=== PATIENT | male | born 1995 | race Caucasian/White ===

== ENCOUNTER 2019-08-12 10:36 | Emergency (ER) | payer SELFPAY ==
--- NOTE | 2019-08-12 11:16 | ED ---
Throat Pain/Nasal Congestion - HPI Summary HPI Summary: This patient is an otherwise healthy 24-year-old male presenting to the ED with left upper molar pain over tooth #17. Patient states his been present times approximately one year, has remained intermittent, not worse or better with eating. He states over the past day, symptoms have become worse and currently rating the pain a 8/10. He states he has never taken antibiotics or pain medications for this. He was able to call [facility] and secure an appointment for Thursday morning, 3 days from today. He denies any fevers, sweats , chills or decreased by mouth intake. Patient is a smoker, drinks alcohol and smokes marijuana. - History of Current Complaint Chief Complaint: EDDentalPain Time Seen by Provider: 08/12/19 10:59 Hx Obtained From: Patient Onset/Duration: Sudden Onset Severity: Moderate Associated Signs And Symptoms: Positive: Negative - Epiglottits Risk Factors Epiglottis Risk Factors: Negative - Allergies/Home Medications Allergies/Adverse Reactions: Allergies Allergy/AdvReac Type Severity Reaction Status Date / Time No Known Allergies Allergy Verified 08/12/19 10:40 PMH/Surg Hx/FS Hx/Imm Hx Previously Healthy: Yes - Immunization History Hx Pertussis Vaccination: No Immunizations Up to Date: Yes Infectious Disease History: No Infectious Disease History: Denies: Traveled Outside the [place] in Last 30 Days - Social History Occupation: Employed Full-time Lives: Alone Alcohol Use: Daily Alcohol Amount: beer and rum Hx Substance Use: Yes Substance Use Type: Reports: Marijuana Hx Tobacco Use: Yes Smoking Status (MU): Heavy Every Day Tobacco Smoker Review of Systems Negative: Fever, Chills, Fatigue, Skin Diaphoresis Positive: Dental Pain Negative: Palpitations, Chest Pain Negative: Shortness Of Breath, Cough Genitourinary: Negative Positive: no symptoms reported, see HPI Musculoskeletal: Negative Neurological: Negative All Other Systems Reviewed And Are Negative: Yes Physical Exam Triage Information Reviewed: Yes Vital Signs On Initial Exam: Initial Vitals Temp Pulse Resp BP Pulse Ox 98.5 F 66 15 135/97 100 08/12/19 10:39 08/12/19 10:39 08/12/19 10:39 08/12/19 10:39 08/12/19 10:39 Vital Signs Reviewed: Yes Appearance: Positive: Well-Appearing, Well-Nourished Skin: Positive: Warm, Skin Color Reflects Adequate Perfusion Head/Face: Positive: Normal Head/Face Inspection Eyes: Positive: EOMI, MADDIE, Conjunctiva Clear Dental: Positive: Other - dental pain - tooth #17 Neck: Positive: Supple, No Lymphadenopathy Respiratory/Lung Sounds: Positive: Clear to Auscultation, Breath Sounds Present Cardiovascular: Positive: RRR Musculoskeletal: Positive: Strength/ROM Intact Neurological: Positive: Speech Normal Psychiatric: Positive: Affect/Mood Appropriate AVPU Assessment: Alert Procedures - Sedation Patient Received Moderate/Deep Sedation with Procedure: No Diagnostics - Vital Signs Vital Signs Temp Pulse Resp BP Pulse Ox 08/12/19 10:39 98.5 F 66 15 135/97 100 - Laboratory Lab Statement: Any lab studies that have been ordered have been reviewed, and results considered in the medical decision making process. EENT Course/Dx - Course Course Of Treatment: Patient is evaluated for left upper molar dental pain. He is having pain over tooth #17. On physical examination, there is no erythema surrounding the tooth. The tooth does have a crack involved. No obvious abscess or swelling. No pharyngeal erythema or tonsillar exudates. Patient is given penicillin 3 times daily 5 days, ibuprofen as well as 2 days' worth of tramadol. He will follow up with [facility] as scheduled on Thursday. - Differential Diagnoses Differential Diagnoses: Other - dental infection - Diagnoses Provider Diagnoses: Toothache Discharge ED - Sign-Out/Discharge Documenting (check all that apply): Patient Departure - Discharge Plan Condition: Stable Disposition: HOME Prescriptions: Ibuprofen 600 mg PO TID PRN #30 tablet MDD 3 PRN Reason: Pain Penicillin VK 500 MG TAB(NF) [Penicillin VK 500 mg Tab(NF)] 500 mg PO TID #15 tab MDD 3 traMADol TAB* [Ultram*] 50 mg PO Q8H PRN #6 tab MDD 3 PRN Reason: Pain Patient Education Materials: Toothache (ED) Forms: *Work Release Referrals: No Primary Care Phys,NOPCP [Primary Care Provider] - Additional Instructions: Please follow-up with dentist as soon as possible Ibuprofen 600 mg 3 times daily for pain For pain not well controlled with ibuprofen, you may use tramadol up to 3 times daily as needed Penicillin 3 times daily 5 days - Billing Disposition and Condition Condition: STABLE Disposition: Home - Attestation Statements Provider Attestation: I was available for consultation for this patient. I did not evaluate the patient or participate in any medical decision making or disposition decisions unless I am specifically named in the chart as having consulted on the patient. If I have consulted on the patient, please see my own ED note on the patient encounter. Lexie Morillo MD
[2019-08-12 11:28] VITALS: BP 121/89
== END 2019-08-12 11:20 | disposition home or self-care (01) ==
LOC: ED 10:36
DX: K08.89 Other specified disorders of teeth and supporting structures (principal); F17.200 Nicotine dependence, unspecified, uncomplicated
CPT/HCPCS: 99282

== ENCOUNTER 2019-10-12 08:11 | Emergency (ER) | payer SELFPAY ==
[2019-10-12 08:21] VITALS: BP 143/91
--- NOTE | 2019-10-12 09:18 | ED ---
Throat Pain/Nasal Congestion - HPI Summary HPI Summary: This patient is a 24 y/o male presenting to [facility] c/o left sided toothache and today with left sided facial swelling. Patient reports he had a left tooth infection a few months ago and was placed on antibiotics. He states he was scheduled 1.5 months ago for a tooth extraction but was scheduled to work that day and missed his appointment. Patient did not reschedule this appointment. He notes yesterday he began to have toothache again and this morning he woke up with left sided facial swelling. Denies fever, shortness of breath, difficulty breathing, drooling, dysphagia, chest pain. Pt admits to smoking and drinking alcohol. Denies any drug use. Denies any PMHx. FHx of DM. NDKA. Home Medications Medication Instructions Recorded Confirmed Type Amoxicillin/Clavulanate TAB* 875 mg PO BID #20 tab 10/12/19 Rx [Augmentin TAB 875*] Ibuprofen TAB* [Motrin TAB* 800 MG] 800 mg PO Q8H PRN #30 tab 10/12/19 Rx Multivitamins/Minerals TAB* 1 tab PO DAILY 10/12/19 10/12/19 History [Theragran/minerals TAB*] - History of Current Complaint Chief Complaint: EDDentalPain Time Seen by Provider: 10/12/19 08:51 Hx Obtained From: Patient Onset/Duration: Gradual Onset, Lasting Days, Still Present Severity: Moderate Associated Signs And Symptoms: Positive: Negative. Negative: Dysphagia, Drooling Cough: None Related History: Other (Noted In Comments) - s/p tooth infection - Allergies/Home Medications Allergies/Adverse Reactions: Allergies Allergy/AdvReac Type Severity Reaction Status Date / Time No Known Allergies Allergy Verified 10/12/19 08:21 Home Medications: Home Medications Amoxicillin/Clavulanate TAB* [Augmentin TAB 875*] 875 mg PO BID #20 tab [Rx] Ibuprofen TAB* [Motrin TAB* 800 MG] 800 mg PO Q8H PRN #30 tab 10/12/19 [Rx] Multivitamins/Minerals TAB* [Theragran/minerals TAB*] 1 tab PO DAILY 10/12/19 [ History Confirmed 10/12/19] PMH/Surg Hx/FS Hx/Imm Hx Endocrine/Hematology History: Denies: Hx Diabetes Cardiovascular History: Denies: Hx Hypertension Infectious Disease History: No Infectious Disease History: Denies: Traveled Outside the [place] in Last 30 Days - Family History Known Family History: Positive: Diabetes - Social History Alcohol Use: Daily Alcohol Amount: beer and rum Hx Substance Use: Yes Substance Use Type: Reports: Marijuana Hx Tobacco Use: Yes Smoking Status (MU): Heavy Every Day Tobacco Smoker Review of Systems Negative: Fever ENT: Other - POSITIVE: left sided facial swelling Positive: Dental Pain. Negative: Other - NEGATIVE: drooling, dysphagia Negative: Chest Pain Negative: Shortness Of Breath, Other - NEGATIVE: difficulty breathing Gastrointestinal: Negative All Other Systems Reviewed And Are Negative: Yes Physical Exam - Summary Physical Exam Summary: VITAL SIGNS: Reviewed. GENERAL: Patient is a well-developed and nourished male who is lying comfortable in the stretcher. Patient is not in any acute respiratory distress. HEAD AND FACE: No signs of trauma. No ecchymosis, hematomas or skull depressions. No sinus tenderness. Slight swelling of the left side of the face. No trismus. No swelling of the tongue. No swelling of the lips. No difficulty swallowing. EYES: PERRLA, EOMI x 2, No injected conjunctiva, no nystagmus. EARS: Hearing grossly intact. Ear canals and tympanic membranes are within normal limits. MOUTH: Oropharynx within normal limits. NECK: Supple, trachea is midline, no adenopathy, no JVD, no carotid bruit, no c- spine tenderness, neck with full ROM. CHEST: Symmetric, no tenderness at palpation LUNGS: Clear to auscultation bilaterally. No wheezing or crackles. CVS: Regular rate and rhythm, S1 and S2 present, no murmurs or gallops appreciated. ABDOMEN: Soft, non-tender. EXTREMITIES: FROM in all major joints, no edema, no cyanosis or clubbing. NEURO: Alert and oriented x 3. No acute neurological deficits. Speech is normal and follows commands. SKIN: Dry and warm Triage Information Reviewed: Yes Vital Signs On Initial Exam: Initial Vitals Temp Pulse Resp BP Pulse Ox 98.8 F 112 18 143/91 100 10/12/19 08:18 10/12/19 08:18 10/12/19 08:18 10/12/19 08:18 10/12/19 08:18 Vital Signs Reviewed: Yes Procedures - Sedation Patient Received Moderate/Deep Sedation with Procedure: No Diagnostics - Vital Signs Vital Signs Temp Pulse Resp BP Pulse Ox 10/12/19 08:18 98.8 F 112 18 143/91 100 - Laboratory Lab Statement: Any lab studies that have been ordered have been reviewed, and results considered in the medical decision making process. EENT Course/Dx - Course Assessment/Plan: This patient is a 24 y/o male presenting to [facility] c/o left sided toothache and today with left sided facial swelling. Patient reports he had a left tooth infection a few months ago and was placed on antibiotics. He states he was scheduled 1.5 months ago for a tooth extraction but was scheduled to work that day and missed his appointment. Patient did not reschedule this appointment. He notes yesterday he began to have toothache again and this morning he woke up with left sided facial swelling. Denies fever, shortness of breath, difficulty breathing, drooling, dysphagia, chest pain. Pt admits to smoking and drinking alcohol. Denies any drug use. Denies any PMHx. FHx of DM. NDKA. Patient doesnt have any trismus, no swelling of the tongue or lips. Patient was given Augmentin and ibuprofen. The patient will see his dentist in the next couple days. Patient was instructed to return to the emergency department if the patient develops any swelling of the tongue, swelling of the lips or difficulty with swallowing. The patient understands and agrees. Patient is hemodynamically stable, alert and oriented 3. - Diagnoses Provider Diagnoses: Pain, dental, Dental cavity, Fractured tooth Discharge ED - Sign-Out/Discharge Documenting (check all that apply): Patient Departure - Discharge home - Discharge Plan Condition: Stable Disposition: HOME Prescriptions: Amoxicillin/Clavulanate TAB* [Augmentin TAB 875*] 875 mg PO BID #20 tab Ibuprofen TAB* [Motrin TAB* 800 MG] 800 mg PO Q8H PRN #30 tab PRN Reason: Pain - Moderate Patient Education Materials: Toothache (ED) Referrals: [facility] [Outside] Additional Instructions: FOLLOW UP WITH YOUR PRIMARY CARE PROVIDER IN 2-3 DAYS. ALSO FOLLOW UP WITH YOUR DENTIST. RETURN TO THE EMERGENCY DEPARTMENT FOR ANY WORSENING OR NEW SYMPTOMS. - Billing Disposition and Condition Condition: STABLE Disposition: Home - Attestation Statements Document Initiated by Scribe: Yes Documenting Scribe: Brisa Ortiz Provider For Whom Scribe is Documenting (Include Credential): Jason Mcgarry MD Scribe Attestation: I, Brisa Ortiz, scribed for Jason Mcgarry MD on 10/14/19 at 0752. Scribe Documentation Reviewed: Yes Provider Attestation: The documentation as recorded by the Brisa villegas accurately reflects the service I personally performed and the decisions made by me, Jason Mcgarry MD Status of Scribe Document: Viewed
[2019-10-12] MEDS ORDERED: Amoxicillin/Clavulanate TAB* 875 MG PO ONE (09:19)
== END 2019-10-12 09:56 | disposition home or self-care (01) ==
LOC: ED 08:11
DX: K08.89 Other specified disorders of teeth and supporting structures (principal); K02.9 Dental caries, unspecified; S02.5XXA Fracture of tooth (traumatic), initial encounter for closed fracture; X58.XXXA Exposure to other specified factors, initial encounter; Y92.9 Unspecified place or not applicable; F17.200 Nicotine dependence, unspecified, uncomplicated
CPT/HCPCS: 99282; A9270-GY